=== PATIENT | female | born 1980 | race Caucasian/White ===

== ENCOUNTER 2016-09-28 17:35 | Inpatient (IN) | payer MEDICAID ==
[2016-09-28] MEDS ORDERED: ENOXAPARIN SODIUM INJ 40 MG/0.4 ML DISP.SYRIN SUBCUT ONE (19:00)
[2016-09-28 19:09] LABS: ARTERIAL BLOOD BASE EXCESS 1.9 mmol/L; ARTERIAL BLOOD O2 SATURATION 98.3 % (94-98)
[2016-09-28 19:35] LABS: HEMATOCRIT 39.1 % (36.0-47.0); HEMOGLOBIN 13.2 g/dL (12.0-15.5); HGB HCT DIFFERENCE 0.5; MEAN CORPUSCULAR HEMOGLOBIN 32.1 pg (27.0-33.4); MEAN CORPUSCULAR HGB CONC 33.7 g/dL (32.0-36.0); MEAN CORPUSCULAR VOLUME 95 fl (80-97); RED CELL DISTRIBUTION WIDTH 14.1 % (11.5-14.0); WHITE BLOOD COUNT 15.5 10^3/uL (4.0-10.5)
[2016-09-28 19:53] LABS: ALBUMIN 3.6 g/dL (3.5-5.0); BILIRUBIN,TOTAL 0.3 mg/dL (0.2-1.3); TOTAL PROTEIN 5.5 g/dL (6.3-8.2)
[2016-09-28] MEDS: IPRATROPIUM/ALBUTEROL 0.5-2.5 MG/3 ML AMPUL NEB SCH ×2 (20:23→22:06)
[2016-09-28 20:47] LABS: ANION GAP 10 (5-19); BLOOD UREA NITROGEN 15 mg/dL (7-20); CALCIUM 9.3 mg/dL (8.4-10.2); CARBON DIOXIDE 25 mmol/L (22-30); CHLORIDE 104 mmol/L (98-107); CREATININE RESULT 0.65 mg/dL (0.52-1.25); GLUCOSE 115 mg/dL (75-110); POTASSIUM 4.1 mmol/L (3.6-5.0); SODIUM 139.4 mmol/L (137-145)
[2016-09-28] MEDS: LEVOFLOXACIN 750 MG/D5W RTU 750 MG/150 ML RTUPB IV SCH (22:05)
[2016-09-28] MEDS: METHYLPREDNISOLONE INJ 125 MG/2 ML SDV IV SCH (22:07)
[2016-09-28 22:20] LABS: APPEARANCE,URINE TURBID; BILIRUBIN,URINE NEGATIVE (NEGATIVE); GLUCOSE, URINE NEGATIVE (NEGATIVE); KETONES,URINE NEGATIVE (NEGATIVE); LEUKOCYTE ESTERASE,URINE NEGATIVE (NEGATIVE); NITRITE,URINE NEGATIVE (NEGATIVE); PROTEIN,URINE NEGATIVE (NEGATIVE); URINE SPECIFIC GRAVITY 1.014; UROBILINOGEN,URINE NEGATIVE mg/dL (<2.0)
[2016-09-29] MEDS: IPRATROPIUM/ALBUTEROL 0.5-2.5 MG/3 ML AMPUL NEB SCH ×9 (00:23→20:31)
[2016-09-29] MEDS: FLUCONAZOLE IV SCH ×2 (00:27→22:35)
[2016-09-29] MEDS: NORMAL SALINE IV SCH ×2 (00:27→22:35)
[2016-09-29] MEDS ORDERED: ALBUTEROL SULFATE 0.083% NEB 2.5 MG/3 ML AMPUL NEB PRN (01:03)
[2016-09-29] MEDS ORDERED: ALBUTEROL SULFATE HFA (90 MCG/PUFF) 200 PUFF/8.5 GM MDI IH PRN ×2 (01:03→11:02)
[2016-09-29] MEDS ORDERED: IPRATROPIUM/ALBUTEROL 120 PUFF/4 GM MDI IH ONE (06:46)
[2016-09-29] MEDS: ALPRAZOLAM 0.5 MG TABLET PO SCH ×3 (06:59→17:03)
[2016-09-29] MEDS: IPRATROPIUM/ALBUTEROL 120 PUFF/4 GM MDI IH SCH ×2 (07:00→09:41)
[2016-09-29] MEDS: METHYLPREDNISOLONE INJ 125 MG/2 ML SDV IV SCH ×3 (07:01→22:35)
[2016-09-29] MEDS: LORATADINE 10 MG TABLET PO SCH (09:36)
[2016-09-29] MEDS: QUETIAPINE FUMARATE 100 MG TABLET PO SCH (09:36)
[2016-09-29] MEDS: GABAPENTIN 300 MG CAPSULE PO SCH ×2 (09:37→22:33)
[2016-09-29] MEDS: LEVOTHYROXINE SODIUM 0.075 MG TABLET PO SCH (09:38)
[2016-09-29] MEDS: FLUTICASONE PROPIONATE HFA 110 MCG/PUFF 12 GM MDI IH SCH ×2 (09:41→22:42)
[2016-09-29] MEDS: ENOXAPARIN SODIUM INJ 40 MG/0.4 ML DISP.SYRIN SUBCUT SCH (09:42)
[2016-09-29] MEDS: FUROSEMIDE 80 MG TABLET PO SCH (09:42)
[2016-09-29] MEDS ORDERED: TRAZODONE HCL 50 MG TABLET PO ONE (10:00)
[2016-09-29] MEDS ORDERED: (PENDING PHARMACY ID) (Beclomethasone Dipropionate [Qvar] 1 PUFF) IH SCH (10:00)
[2016-09-29] MEDS ORDERED: (PENDING PHARMACY ID) (Dextroamphetamine/Amphetamine [Adderall 30 Mg Tablet] 30 MG) PO SCH (10:00)
--- NOTE | 2016-09-29 12:50 | PDOC H&P ---
History of Present Illness Admission Date/PCP: 09/28/16 17:35 History of Present Illness: MIKAL ROBBINS is a 36 y female, She has a history of chronic obstructive pulmonary disease, nicotine dependence, she was seen in the office about a week ago when she presented with respiratory symptoms, shortness of breath, wheezing and she was prescribed p.o. antibiotic, bronchodilators, and prednisone and she was advised to follow-up in the office. Despite multiple episodes of office visit and also management of patient with p.o. medication patient continues to wheeze and she ca came to the office requesting that may be she needed to be admitted because she was not improving. On examination and on auscultation of the chest that was diffuse wheezing in both lung acevedo, she has extensive oral thrush probably from a combination of inhaled steroid and antibiotic usage. The blood gas was done showed respiratory alkalosis and CT chest that was done did not show any acute infiltrates to suggest pneumonia Past Medical History Cardiac Medical History: Reports: Hypertension Pulmonary Medical History: Reports: Asthma, Chronic Obstructive Pulmonary Disease (COPD) Neurological Medical History: Reports: Migraine Endocrine Medical History: Reports: Hypothyroidism Malignancy Medical History: Reports: Cervical Cancer GI Medical History: Reports: Gastroesophageal Reflux Disease Psychiatric Medical History: Reports: Attention Deficit Hyperactivity Disorder, Bipolar Disorder, Depression Past Surgical History Past Surgical History: Reports: Tubal Ligation Social History Smoking Status: Current Every Day Smoker Number of Years Smokin Frequency of Alcohol Use: None Hx Recreational Drug Use: No Hx Prescription Drug Abuse: No Family History Family History: Arthritis, CAD, CVA, DM, Malignancy, Thyroid Disfunction Parental Family History Reviewed: Yes Children Family History Reviewed: Yes Sibling(s) Family History Reviewed.: Yes Medication/Allergy Home Medications: Albuterol Sulfate [Proair HFA Inhalation Aerosol 8.5 gm MDI] 1 puff IH Q4HP PRN 09/28/16 Albuterol Sulfate [Ventolin 0.083% Neb 2.5 mg/3 mL Ampul] 2.5 mg NEB Q4HP PRN Alprazolam [Xanax] 1 mg PO QID 09/28/16 Beclomethasone Dipropionate [Qvar] 1 puff IH Q12 09/28/16 Dextroamphetamine/Amphetamine [Adderall 30 mg Tablet] 30 mg PO TID 09/28/16 Fluticasone Propionate [Flovent Hfa 110 Mcg Inhalation Aerosol 12 gm] 1 puff IH Q12 09/28/16 Furosemide [Lasix] 80 mg PO DAILY 09/28/16 Gabapentin [Neurontin 300 mg Capsule] 300 mg PO Q12 09/28/16 Ipratropium/Albuterol Sulfate [Combivent Respimat 4 gm Mdi] 1 puff IH QID Levothyroxine Sodium [Synthroid 0.075 mg Tablet] 0.075 mg PO QAM 09/28/16 Loratadine [Claritin 10 mg Tablet] 10 mg PO DAILY 09/28/16 Melatonin 10 mg PO QPM 09/28/16 Quetiapine Fumarate [Seroquel] 200 mg PO QAM 09/28/16 Quetiapine Fumarate [Seroquel] 400 mg PO QHS 09/28/16 Trazodone HCl [Desyrel] 200 mg PO QHS 09/28/16 Allergies/Adverse Reactions: No Known Allergies Allergy (Verified 07/13/16 12:39) Review of Systems Constitutional: ABSENT: chills, fever(s), headache(s), weight gain, weight loss Eyes: ABSENT: visual disturbances Ears: ABSENT: hearing changes Cardiovascular: ABSENT: chest pain, dyspnea on exertion, edema, orthropnea, palpitations Respiratory: PRESENT: cough, dyspnea, sputum Gastrointestinal: ABSENT: abdominal pain, constipation, diarrhea, hematemesis, hematochezia, nausea, vomiting Genitourinary: ABSENT: dysuria, hematuria Musculoskeletal: ABSENT: joint swelling Integumentary: ABSENT: rash, wounds Neurological: ABSENT: abnormal gait, abnormal speech, confusion, dizziness, focal weakness, syncope Psychiatric: ABSENT: anxiety, depression, homidical ideation, suicidal ideation Endocrine: ABSENT: cold intolerance, heat intolerance, menstrual abnormalities, polydipsia, polyuria Hematologic/Lymphatic: ABSENT: easy bleeding, easy bruising, lymphadenopathy Physical Exam Vital Signs: Temp Pulse Resp BP Pulse Ox 97.9 F 92 16 122/72 96 09/29/16 07:51 09/29/16 11:44 09/29/16 11:44 09/29/16 07:51 09/29/16 11:44 Intake & Output 09/28/16 09/29/16 09/30/16 06:59 06:59 06:59 Intake Total 260 Balance 260 Weight 65 kg General appearance: PRESENT: cooperative Head exam: PRESENT: atraumatic, normocephalic Eye exam: PRESENT: conjunctiva pink, EOMI, PERRLA Neck exam: PRESENT: full ROM Respiratory exam: PRESENT: wheezes Cardiovascular exam: PRESENT: RRR, +S1, +S2 Vascular exam: PRESENT: normal capillary refill GI/Abdominal exam: PRESENT: normal bowel sounds, soft Rectal exam: PRESENT: deferred Neurological exam: PRESENT: alert, awake, oriented to person, oriented to place , oriented to time, oriented to situation, CN II-XII grossly intact Psychiatric exam: PRESENT: appropriate affect, normal mood Skin exam: PRESENT: dry, intact, warm Results Laboratory Results: 09/28/16 19:20 09/28/16 19:20 09/28/16 09/28/16 09/28/16 18:45 19:20 19:20 WBC 15.5 H RBC 4.10 Hgb 13.2 Hct 39.1 MCV 95 MCH 32.1 MCHC 33.7 RDW 14.1 H Plt Count 336 Carbonic Acid 1.04 L HCO3/H2CO3 Ratio 24:1 ABG pH 7.48 H ABG pCO2 34.5 L ABG pO2 108.3 H ABG HCO3 25.0 ABG O2 Saturation 98.3 H ABG Base Excess 1.9 FiO2 ROOM AIR Sodium 139.4 Potassium 4.1 Chloride 104 Carbon Dioxide 25 Anion Gap 10 BUN 15 Creatinine 0.65 Est GFR ( Amer) > 60 Est GFR (Non-Af Amer) > 60 Glucose 115 H Calcium 9.3 Total Bilirubin AST ALT Alkaline Phosphatase Total Protein Albumin TSH Urine Color Urine Appearance Urine pH Ur Specific [place] Urine Protein Urine Glucose (UA) Urine Ketones Urine Blood Urine Nitrite Ur Leukocyte Esterase Urine WBC (Auto) Urine RBC (Auto) 09/28/16 09/28/16 09/28/16 19:20 19:20 21:40 WBC RBC Hgb Hct MCV MCH MCHC RDW Plt Count Carbonic Acid HCO3/H2CO3 Ratio ABG pH ABG pCO2 ABG pO2 ABG HCO3 ABG O2 Saturation ABG Base Excess FiO2 Sodium Potassium Chloride Carbon Dioxide Anion Gap BUN Creatinine Est GFR ( Amer) Est GFR (Non-Af Amer) Glucose Calcium Total Bilirubin 0.3 AST 35 ALT 59 H Alkaline Phosphatase 81 Total Protein 5.5 L Albumin 3.6 TSH 1.20 Urine Color YELLOW Urine Appearance TURBID Urine pH 9.0 Ur Specific [place] 1.014 Urine Protein NEGATIVE Urine Glucose (UA) NEGATIVE Urine Ketones NEGATIVE Urine Blood NEGATIVE Urine Nitrite NEGATIVE Ur Leukocyte Esterase NEGATIVE Urine WBC (Auto) 1 Urine RBC (Auto) 1 Impressions: Chest CT 09/28/16 00:00 IMPRESSION: NO SIGNIFICANT FINDING ON NON-CONTRASTED CHEST CT. Assessment & Plan - Diagnosis (1) Acute exacerbation of chronic obstructive pulmonary disease (COPD) Is this a current diagnosis for this admission?: YesPlan: Patient has failed outpatient treatment for acute COPD exacerbation she is admitted to the hospital to be treated with IV Solu-Medrol, frequent bronchodilators, and also intravenous Diflucan for the extensive oral thrush (3) Nicotine dependence, cigarettes, with other nicotine-induced disorders Is this a current diagnosis for this admission?: Yes
[2016-09-29] MEDS ORDERED: (PENDING PHARMACY ID) (Melatonin [Melatonin] 10 MG) PO SCH (18:00)
[2016-09-29] MEDS: LEVOFLOXACIN 750 MG/D5W RTU 750 MG/150 ML RTUPB IV SCH (20:13)
--- NOTE | 2016-09-29 20:24 | PDOC PROGRESS REPORT ---
Subjective Progress Note for:: 09/29/16 Subjective:: She was seen by the bedside, she is very diaphoretic and she is still wheezing Physical Exam Vital Signs: Temp Pulse Resp BP Pulse Ox 98.4 F 82 18 123/88 H 98 09/29/16 16:15 09/29/16 16:29 09/29/16 16:29 09/29/16 16:15 09/29/16 16:29 Intake & Output 09/28/16 09/29/16 09/30/16 06:59 06:59 06:59 Intake Total 260 750 Balance 260 750 Weight 65 kg General appearance: PRESENT: mild distress Eye exam: PRESENT: PERRLA Respiratory exam: PRESENT: wheezes Cardiovascular exam: PRESENT: +S1, +S2 GI/Abdominal exam: PRESENT: soft Musculoskeletal exam: PRESENT: full ROM Neurological exam: PRESENT: alert, CN II-XII grossly intact Results Laboratory Results: 09/28/16 19:20 09/28/16 19:20 09/28/16 09/28/16 09/28/16 19:20 19:20 21:40 Sodium 139.4 Potassium 4.1 Chloride 104 Carbon Dioxide 25 Anion Gap 10 BUN 15 Creatinine 0.65 Est GFR ( Amer) > 60 Est GFR (Non-Af Amer) > 60 Glucose 115 H Calcium 9.3 TSH 1.20 Urine Color YELLOW Urine Appearance TURBID Urine pH 9.0 Ur Specific [place] 1.014 Urine Protein NEGATIVE Urine Glucose (UA) NEGATIVE Urine Ketones NEGATIVE Urine Blood NEGATIVE Urine Nitrite NEGATIVE Ur Leukocyte Esterase NEGATIVE Urine WBC (Auto) 1 Urine RBC (Auto) 1 Impressions: Chest CT 09/28/16 00:00 IMPRESSION: NO SIGNIFICANT FINDING ON NON-CONTRASTED CHEST CT. Assessment & Plan - Diagnosis (1) Acute exacerbation of chronic obstructive pulmonary disease (COPD) Is this a current diagnosis for this admission?: YesPlan: She will continue IV antibiotic and bronchodilators (3) Nicotine dependence, cigarettes, with other nicotine-induced disorders Is this a current diagnosis for this admission?: Yes
[2016-09-29] MEDS ORDERED: QUETIAPINE FUMARATE 100 MG TABLET PO SCH (22:00)
[2016-09-29] MEDS ORDERED: (PENDING PHARMACY ID) (Quetiapine Fumarate [Seroquel] 400 MG) PO SCH (22:00)
[2016-09-29] MEDS ORDERED: TRAZODONE HCL 50 MG TABLET PO SCH (22:00)
[2016-09-30] MEDS: ALPRAZOLAM 0.5 MG TABLET PO SCH ×4 (00:09→16:20)
[2016-09-30] MEDS: METHYLPREDNISOLONE INJ 125 MG/2 ML SDV IV SCH ×2 (06:45→16:24)
[2016-09-30 08:16] LABS: URINE BARBITURATES SCREEN NEGATIVE; URINE METHADONE SCREEN NEGATIVE; URINE OPIATES LOW NEGATIVE; URINE PHENCYCLIDINE SCREEN NEGATIVE
[2016-09-30] MEDS: IPRATROPIUM/ALBUTEROL 0.5-2.5 MG/3 ML AMPUL NEB SCH ×3 (09:01→16:19)
[2016-09-30] MEDS: ENOXAPARIN SODIUM INJ 40 MG/0.4 ML DISP.SYRIN SUBCUT SCH (10:35)
[2016-09-30] MEDS: GABAPENTIN 300 MG CAPSULE PO SCH (11:39)
[2016-09-30] MEDS: QUETIAPINE FUMARATE 100 MG TABLET PO SCH (11:39)
[2016-09-30] MEDS: LEVOTHYROXINE SODIUM 0.075 MG TABLET PO SCH (11:40)
[2016-09-30] MEDS: LORATADINE 10 MG TABLET PO SCH (11:40)
[2016-09-30] MEDS: FLUTICASONE PROPIONATE HFA 110 MCG/PUFF 12 GM MDI IH SCH (11:44)
[2016-09-30] MEDS: FUROSEMIDE 80 MG TABLET PO SCH (11:47)
--- NOTE | 2016-09-30 16:31 | PDOC PROGRESS REPORT ---
Subjective Progress Note for:: 09/30/16 Subjective:: She is still wheezing, she has a low oxygen saturation in room air she probably would need home oxygen on discharge Physical Exam Vital Signs: Temp Pulse Resp BP Pulse Ox 97.8 F 85 18 103/52 L 96 09/30/16 15:20 09/30/16 16:15 09/30/16 16:15 09/30/16 15:20 09/30/16 16:15 Intake & Output 09/29/16 09/30/16 10/01/16 06:59 06:59 06:59 Intake Total 260 1650 318 Balance 260 1650 318 Weight 65 kg General appearance: PRESENT: mild distress Eye exam: PRESENT: PERRLA Respiratory exam: PRESENT: wheezes Cardiovascular exam: PRESENT: +S1, +S2 GI/Abdominal exam: PRESENT: soft Neurological exam: PRESENT: alert, CN II-XII grossly intact Results Laboratory Results: 09/28/16 19:20 09/28/16 19:20 Impressions: Chest CT 09/28/16 00:00 IMPRESSION: NO SIGNIFICANT FINDING ON NON-CONTRASTED CHEST CT. Assessment & Plan - Diagnosis (1) Acute exacerbation of chronic obstructive pulmonary disease (COPD) Is this a current diagnosis for this admission?: YesPlan: She will continue present treatment (3) Nicotine dependence, cigarettes, with other nicotine-induced disorders Is this a current diagnosis for this admission?: Yes
[2016-09-30 17:05] VITALS: BP 120/65
--- NOTE | 2016-09-30 17:10 | PDOC DISCHARGE SUMMARY ---
General - Admit/Disc Date/PCP Admission Date/Primary Care Provider: 09/28/16 17:35 Discharge Date: 09/30/16 - Discharge Diagnosis (1) Acute exacerbation of chronic obstructive pulmonary disease (COPD) Is this a current diagnosis for this admission?: Yes (3) Nicotine dependence, cigarettes, with other nicotine-induced disorders Is this a current diagnosis for this admission?: Yes - Additional Information Discharge Activity: Activity As Tolerated Home Medications: Albuterol Sulfate [Proair HFA Inhalation Aerosol 8.5 gm MDI] 1 puff IH Q4HP PRN 09/28/16 Albuterol Sulfate [Ventolin 0.083% Neb 2.5 mg/3 mL Ampul] 2.5 mg NEB Q4HP PRN Alprazolam [Xanax] 1 mg PO QID 09/28/16 Beclomethasone Dipropionate [Qvar] 1 puff IH Q12 09/28/16 Fluticasone Propionate [Flovent Hfa 110 Mcg Inhalation Aerosol 12 gm] 1 puff IH Q12 09/28/16 Ipratropium/Albuterol Sulfate [Combivent Respimat 4 gm Mdi] 1 puff IH QID Levothyroxine Sodium [Synthroid 0.075 mg Tablet] 0.075 mg PO QAM 09/28/16 Loratadine [Claritin 10 mg Tablet] 10 mg PO DAILY 09/28/16 Melatonin 10 mg PO QPM 09/28/16 Quetiapine Fumarate [Seroquel] 200 mg PO QAM 09/28/16 Quetiapine Fumarate [Seroquel] 400 mg PO QHS 09/28/16 Trazodone HCl [Desyrel] 200 mg PO QHS 09/28/16 Dextroamphetamine/Amphetamine [Adderall 30 mg Tablet] 30 mg PO TID 09/30/16 Fluticasone/Salmeterol [Advair 250-50 Diskus 28 dose] 1 inh IH Q12H #1 inhaler 09/30/16 Prednisone 20 mg PO DAILY #40 tablet 09/30/16 Tiotropium [place] [Spiriva Handihaler 18 mcg/dose (30 Dose)] 1 cap IH DAILY # 30 capsule 09/30/16 History of Present Illness History of Present Illness: MIKAL ROBBINS is a 36 y female, She has a history of chronic obstructive pulmonary disease, nicotine dependence, she was seen in the office about a week ago when she presented with respiratory symptoms, shortness of breath, wheezing and she was prescribed p.o. antibiotic, bronchodilators, and prednisone and she was advised to follow-up in the office. Despite multiple episodes of office visit and also management of patient with p.o. medication patient continues to wheeze and she ca came to the office requesting that may be she needed to be admitted because she was not improving. On examination and on auscultation of the chest that was diffuse wheezing in both lung acevedo, she has extensive oral thrush probably from a combination of inhaled steroid and antibiotic usage. The blood gas was done showed respiratory alkalosis and CT chest that was done did not show any acute infiltrates to suggest pneumonia Hospital Course Hospital Course: Patient was admitted because of acute COPD exacerbation, she was treated with intravenous Solu-Medrol and antibiotic, she also had hypoxemia requiring oxygen therapy, she was discharged home on home oxygen. She was treated outpatient with p.o. prednisone and antibiotic and also bronchodilators without improvement and then she was admitted to the hospital for management Physical Exam Vital Signs: Temp Pulse Resp BP Pulse Ox 97.8 F 85 18 120/65 96 09/30/16 17:03 09/30/16 17:03 09/30/16 17:03 09/30/16 17:03 09/30/16 17:03 Intake & Output 09/29/16 09/30/16 10/01/16 06:59 06:59 06:59 Intake Total 260 1650 318 Balance 260 1650 318 Weight 65 kg General appearance: PRESENT: mild distress Eye exam: PRESENT: PERRLA Respiratory exam: PRESENT: wheezes Cardiovascular exam: PRESENT: +S1, +S2 GI/Abdominal exam: PRESENT: soft Neurological exam: PRESENT: alert, CN II-XII grossly intact Results Laboratory Results: 09/28/16 19:20 09/28/16 19:20 Impressions: Chest CT 09/28/16 00:00 IMPRESSION: NO SIGNIFICANT FINDING ON NON-CONTRASTED CHEST CT.
== END 2016-09-30 18:35 | disposition home or self-care (01) | DRG 192 ==
LOC: 3W 17:35
PROVIDERS: ADMIT Internal Medicine; ATTEND Internal Medicine
PROC: 3E0F73Z Introduction of Anti-inflammatory into Respiratory Tract, Via Natural or Artificial Opening (ICD-10-PCS; principal; 2016-09-28)
DX: J44.1 Chronic obstructive pulmonary disease with (acute) exacerbation (principal); I10 Essential (primary) hypertension; J45.909 Unspecified asthma, uncomplicated; G43.909 Migraine, unspecified, not intractable, without status migrainosus; E03.9 Hypothyroidism, unspecified; F90.9 Attention-deficit hyperactivity disorder, unspecified type; F31.9 Bipolar disorder, unspecified; F17.210 Nicotine dependence, cigarettes, uncomplicated; Z79.899 Other long term (current) drug therapy; Z85.41 Personal history of malignant neoplasm of cervix uteri; Z99.81 Dependence on supplemental oxygen; K21.9 Gastro-esophageal reflux disease without esophagitis; Z82.61 Family history of arthritis; Z82.3 Family history of stroke; Z83.3 Family history of diabetes mellitus; Z80.9 Family history of malignant neoplasm, unspecified; Z82.49 Family history of ischemic heart disease and other diseases of the circulatory system; Z83.49 Family history of other endocrine, nutritional and metabolic diseases
CPT/HCPCS: 36415; 36600; 71250; 80048; 80076; 80307; 81001; 82803; 84443; 85027; 87040; 87210; 94640; J1450; J1650; J1956; J2930; J3490; J7620

== ENCOUNTER 2017-07-07 23:43 | Emergency (ER) | payer MEDICAID ==
[2017-07-08] MEDS ORDERED: CYCLOBENZAPRINE HCL 10 MG TABLET PO ONE (00:30)
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
--- NOTE | 2017-07-08 01:21 | RADIOLOGY REPORT (SQ) ---
EXAM DESCRIPTION: SHOULDER LEFT 2 OR MORE VIEWS CLINICAL HISTORY: 36 years, Female, shoulder injury COMPARISON: None. NUMBER OF VIEWS:5, including scapular Y LIMITATIONS: None. FINDINGS: Bones, joints, and soft tissues appear intact. IMPRESSION: Normal left shoulder. 2011 [employer]- All Rights Reserved
--- NOTE | 2017-07-08 01:22 | RADIOLOGY REPORT (SQ) ---
EXAM DESCRIPTION: TIBIA FIBULA RIGHT CLINICAL HISTORY: 36 years, Female, fall with pain COMPARISON: None. NUMBER OF VIEWS: Two. LIMITATIONS: None. FINDINGS: Bones, joints, and soft tissues appear intact. IMPRESSION: Normal left lower leg radiographs. 2011 [employer]- All Rights Reserved
[2017-07-08 02:53] VITALS: BP 112/75
== END 2017-07-08 02:51 | disposition home or self-care (01) ==
LOC: ER 23:43
DX: S43.402A Unspecified sprain of left shoulder joint, initial encounter (principal); S80.11XA Contusion of right lower leg, initial encounter; M25.512 Pain in left shoulder; M79.661 Pain in right lower leg; Y04.0XXA Assault by unarmed brawl or fight, initial encounter; I10 Essential (primary) hypertension; J44.9 Chronic obstructive pulmonary disease, unspecified; Z85.41 Personal history of malignant neoplasm of cervix uteri; Z87.891 Personal history of nicotine dependence
CPT/HCPCS: 99283; 73030; 73590; J3490